=== PATIENT | male | born 1940 | race Caucasian/White ===

== ENCOUNTER 2018-03-14 15:51 | Observation (INO) | payer MEDICARE, OTHER ==
[~2018-03-14] VITALS: Ht 172.7 cm; Wt 98.0 kg
[~2018-03-14 15:51] MED LIST: ASPI81 PO; CENTTAB9 PO; FISH1000 PO; LISI-360 PO; MONT10TA2 PO; SIMV40TA PO; TYLE500T PO; VITD400 PO; [UNRECOGNIZED DRUG - OTHER] PO
[2018-03-14 16:05] VITALS: BP 182/78; PULSE 53; RESP 20; TEMP 98.1; O2SAT 100
[2018-03-14] MEDS ORDERED: NITROGLYCERIN 2% OINT 1 GM PACKET TOP ONE (16:15)
[2018-03-14] MEDS ORDERED: SODIUM CHLORIDE 0.9% FLUSH 10 ML FLUSH IVF PRN (16:15)
[2018-03-14] MEDS ORDERED: OCUVTAB PO (16:16)
[2018-03-14] MEDS ORDERED: ASPI-516 CHEW (16:16)
[2018-03-14] MEDS ORDERED: FISHCAP4 PO (16:16)
[2018-03-14] MEDS ORDERED: SIMV40TA PO (16:16)
[2018-03-14] MEDS ORDERED: COZA50TA PO (16:16)
[2018-03-14] MEDS ORDERED: MULTTAB67 PO (16:16)
--- NOTE | 2018-03-14 16:16 | PD ---
HPI Chief Complaint: Chest pain Time Seen by Provider: 16:04 Travel History International Travel<30 days: No Contact w/Intl Traveler<30days: No Traveled to known affect area: No History of Present Illness HPI This is a 78-year-old male with history of hypertension, hyperlipidemia who presents via EMS for evaluation of chest pain and dyspnea with exertion. Symptoms started 5-6 days ago. Reports a substernal chest tightness which is only present when he is exerting himself such as when he is moving furniture or walking his dogs. He reports associated dyspnea with exertion. Today he was walking and he felt the symptoms and this is what prompted evaluation today. He is currently asymptomatic. He took 1 baby aspirin this morning and received 3 more baby aspirin by EMS prior to arrival. He denies any cough, congestion, nausea, vomiting, diaphoresis, fevers or chills, recent illness, abdominal pain , lower extremity edema. He reports that he believes that he had a cardiac catheterization 9-10 years ago and it was normal. He had a myocardial perfusion scan in August 2013 which revealed an ejection fraction of 48% but was otherwise unremarkable. He has not had any stress testing since 2012. 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 His primary care physician is Dr. Poe. [facility] Past Medical History Arthritis: Yes Autoimmune Disease: Yes Heart Rhythm Problems: No Cancer: Yes (PROSTATE) Cardiac Catheterization: No Cardiovascular Problems: No High Cholesterol: No Congestive Heart Failure: No Diabetes: No Genitourinary: Yes (HAD KIDNEY STONE 2 YEARS AGO) Hepatitis: No Hiatal Hernia: Yes Hypertension: Yes Kidney Stones: Yes Musculoskeletal: Yes Neurologic: No Psychiatric: No Reproductive: No Respiratory: No Thyroid Disease: No Past Surgical History Abdominal Surgery: Yes (UMB. HERNIA REP. (X2)) AICD: No Cardiac Surgery: No Coronary Artery Bypass Graft: No Ear Surgery: No Endocrine Surgery: No Eye Surgery: No Genitourinary Surgery: Yes (PROSTATECTOMY) Gynecologic Surgery: No Joint Replacement: Yes (SANGEETA KNEE) Oral Surgery: No Pacemaker: No Thoracic Surgery: No Social History Alcohol Use: No (HX OF ETOH ABUSE) Tobacco Use: No (QUIT 20 YEARS AGO) Substance Use: No Allergies-Medications (Allergen,Severity, Reaction): Coded Allergies: penicillin G (Unverified Allergy, Severe, Rash, 03/14/18) Reported Meds & Prescriptions Reported Meds & Active Scripts Active Reported Cozaar (Losartan Potassium) 50 Mg Tab 50 Mg PO DAILY Simvastatin 40 Mg Tab 40 Mg PO HS Multiple Vitamin 1 Tab 1 Tab PO DAILY Ocuvite (Multiple Vitamins W/ Minerals) 1 Tab 1 Tab PO DAILY Fish Oil + D3 (Fish Oil-Cholecalciferol) 1,200-1,000 Mg-Unit Cap 1 Cap PO DAILY Aspirin 81 Mg Chew 81 Mg CHEW DAILY Review of Systems Except as stated in HPI: all other systems reviewed are Neg Physical Exam Narrative GENERAL: Well developed well-nourished male in no acute distress resting comfortably in hospital bed vital signs reviewed. SKIN: Warm and dry. HEAD: Atraumatic. Normocephalic. EYES: Pupils equal and round. No scleral icterus. No injection or drainage. ENT: No nasal bleeding or discharge. Mucous membranes pink and moist. NECK: Trachea midline. No JVD. CARDIOVASCULAR: Regular rate and rhythm. No murmur appreciated. RESPIRATORY: No accessory muscle use. Clear to auscultation. Breath sounds equal bilaterally. GASTROINTESTINAL: Abdomen soft, non-tender, nondistended. Hepatic and splenic margins not palpable. MUSCULOSKELETAL: No obvious deformities. No clubbing. No cyanosis. No edema. NEUROLOGICAL: Awake and alert. No obvious cranial nerve deficits. Motor grossly within normal limits. Normal speech. PSYCHIATRIC: Appropriate mood and affect; insight and judgment normal. Data Data Last Documented VS Vital Signs Date Time Temp Pulse Resp B/P (MAP) Pulse Ox O2 Delivery O2 Flow Rate FiO2 03/14/18 16:35 45 19 182/78 (112) 98 Nasal Cannula 2.00 03/14/18 16:05 98.1 Orders Orders Electrocardiogram (03/14/18 16:11) Basic Metabolic Panel (Bmp) (03/14/18 16:11) Ckmb (Isoenzyme) Profile (03/14/18 16:11) Complete Blood Count With Diff (03/14/18 16:11) Magnesium (Mg) (03/14/18 16:11) Prothrombin Time / Inr (Pt) (03/14/18 16:11) Act Partial Throm Time (Ptt) (03/14/18 16:11) Troponin I (03/14/18 16:11) Ecg Monitoring (03/14/18 16:11) Bilateral Bp Monitoring (03/14/18 16:11) Iv Access Insert/Monitor (03/14/18 16:11) Oximetry (03/14/18 16:11) Oxygen Administration (03/14/18 16:11) Sodium Chloride 0.9% Flush (Ns Flush) (03/14/18 16:15) Chest, Pa & Lat (03/14/18 16:11) Nitroglycerin 2% Oint (Nitroglycerin 2% (03/14/18 16:15) CKMB (03/14/18 14:15) CKMB% (03/14/18 14:15) Admit Order (Ed Use Only) (03/14/18 17:14) Activity Bed Rest With Brp (03/14/18 17:15) Vital Signs (Adult) Q4H (03/14/18 17:15) Cardiac Rhythm .As Directed (03/14/18 17:15) Notify Dr: Other .PRN (03/14/18 17:15) Notify Dr. Parameters (03/14/18 17:15) Resp Oxygen Nasal Cannula (03/14/18 ) Diet Heart Healthy (03/14/18 Dinner) Ckmb (Isoenzyme) Profile (03/14/18 17:15) Ckmb (Isoenzyme) Profile (03/14/18 20:15) Troponin I (03/14/18 17:15) Troponin I (03/14/18 20:15) Electrocardiogram (03/14/18 17:15) Electrocardiogram (03/14/18 20:15) ^ Obtain (03/14/18 17:15) Sodium Chloride 0.9% Flush (Ns Flush) (03/14/18 17:15) Sodium Chloride 0.9% Flush (Ns Flush) (03/14/18 21:00) Labs Laboratory Tests Test 03/14/18 14:15 White Blood Count 11.3 TH/MM3 Red Blood Count 4.63 MIL/MM3 Hemoglobin 14.4 GM/DL Hematocrit 42.1 % Mean Corpuscular Volume 91.0 FL Mean Corpuscular Hemoglobin 31.1 PG Mean Corpuscular Hemoglobin Concent 34.1 % Red Cell Distribution Width 13.3 % Platelet Count 252 TH/MM3 Mean Platelet Volume 8.5 FL Neutrophils (%) (Auto) 69.2 % Lymphocytes (%) (Auto) 18.9 % Monocytes (%) (Auto) 10.1 % Eosinophils (%) (Auto) 1.2 % Basophils (%) (Auto) 0.6 % Neutrophils # (Auto) 7.8 TH/MM3 Lymphocytes # (Auto) 2.1 TH/MM3 Monocytes # (Auto) 1.1 TH/MM3 Eosinophils # (Auto) 0.1 TH/MM3 Basophils # (Auto) 0.1 TH/MM3 CBC Comment DIFF FINAL Differential Comment Prothrombin Time 10.0 SEC Prothromb Time International Ratio 1.0 RATIO Activated Partial Thromboplast Time 19.1 SEC Blood Urea Nitrogen 19 MG/DL Creatinine 1.23 MG/DL Random Glucose 126 MG/DL Calcium Level 9.1 MG/DL Magnesium Level 2.2 MG/DL Sodium Level 145 MEQ/L Potassium Level 4.2 MEQ/L Chloride Level 110 MEQ/L Carbon Dioxide Level 28.1 MEQ/L Anion Gap 7 MEQ/L Estimat Glomerular Filtration Rate 57 ML/MIN Total Creatine Kinase 180 U/L Creatine Kinase MB 2.4 NG/ML Troponin I LESS THAN 0.02 NG/ML MDM Medical Decision Making Medical Screen Exam Complete: Yes Emergency Medical Condition: Yes Medical Record Reviewed: Yes Differential Diagnosis Angina, acute coronary syndrome, CHF, pneumothorax, pericarditis, myocarditis, aortic dissection, pulmonary embolism Narrative Course The patient was placed on ECG monitoring pulse oximetry. 12-lead EKG was obtained revealing sinus bradycardia with a rate of 50, first-degree AV block, right bundle branch block. Lab work, chest x-ray been ordered. Nitroglycerin paste has been ordered. The patient's blood pressure normalized during his hospital stay. Initial lab work is reassuring. Cardiac enzymes are negative. At this point in time the plan will be to admit the patient to the chest pain center for serial cardiac enzymes and rule out purposes. He is agreeable. Diagnosis Primary Impression: Chest pain Admitting Information Admitting Physician Requests: Eliecer Jones Mar 14, 2018 16:16
[2018-03-14 16:33] LABS: AUTOMATED NEUTROPHIL # 7.8 TH/MM3 (1.8-7.7); BASOPHIL # 0.1 TH/MM3 (0-0.2); BASOPHIL % 0.6 % (0.0-2.0); EOSINOPHIL # 0.1 TH/MM3 (0-0.4); EOSINOPHIL % 1.2 % (0.0-4.0); HEMATOCRIT 42.1 % (39.0-51.0); HEMOGLOBIN 14.4 GM/DL (13.0-17.0); LYMPH % 18.9 % (9.0-44.0); LYMPHOCYTE # 2.1 TH/MM3 (1.0-4.8); MEAN CORPUSCULAR HEMOGLOBIN 31.1 PG (27.0-34.0); MEAN CORPUSCULAR HGB CONC 34.1 % (32.0-36.0); MEAN PLATELET VOLUME 8.5 FL (7.0-11.0); MONO % 10.1 % (0.0-8.0); MONOCYTE # 1.1 TH/MM3 (0-0.9); NEUT % 69.2 % (16.0-70.0); PLATELET COUNT 252 TH/MM3 (150-450); RED BLOOD COUNT 4.63 MIL/MM3 (4.50-5.90); RED CELL DISTRIBUTION WIDTH 13.3 % (11.6-17.2); WHITE BLOOD COUNT 11.3 TH/MM3 (4.0-11.0)
[2018-03-14 16:35] VITALS: BP 182/78; PULSE 45; RESP 19; O2SAT 98
--- NOTE | 2018-03-14 16:41 | RADRPT ---
EXAM DATE/TIME: 03/14/2018 16:27 [facility] COMPARISON: No previous studies available for comparison. INDICATIONS : Shortness of breath and chest pressure. MEDICAL HISTORY : None. SURGICAL HISTORY : None. ENCOUNTER: Initial ACUITY: 1 day PAIN SCORE: 0/10 LOCATION: Bilateral chest FINDINGS: PA and lateral views of the chest demonstrate the lungs to be symmetrically aerated without evidence of mass, infiltrate or effusion. The cardiomediastinal contours are unremarkable. Osseous structure s are intact. CONCLUSION: No acute disease. Paul Guerrier MD on March 14, 2018 at 16:38 Board Certified Radiologist. This report was verified electronically.
[2018-03-14 16:58] LABS: BICARBONATE 28.1 MEQ/L (21.0-32.0); BLOOD UREA NITROGEN 19 MG/DL (7-18); CALCIUM 9.1 MG/DL (8.5-10.1); CHLORIDE 110 MEQ/L (98-107); CREATININE 1.23 MG/DL (0.60-1.30); GLOMERULAR FILTRATION RATE 57 ML/MIN (>89); GLUCOSE,RANDOM 126 MG/DL (74-106); MAGNESIUM 2.2 MG/DL (1.5-2.5); SODIUM (NA) 145 MEQ/L (136-145)
[2018-03-14 17:03] LABS: TROPONIN I LESS THAN 0.02 NG/ML (0.02-0.05)
[2018-03-14] MEDS ORDERED: SODIUM CHLORIDE 0.9% FLUSH 10 ML FLUSH IV FLUSH PRN (17:15)
[2018-03-14] MEDS ORDERED: ACETAMINOPHEN 500 MG CPLT PO PRN (17:30)
[2018-03-14] MEDS ORDERED: ONDANSETRON HCL 4 MG/2 ML VIAL IV PUSH PRN (17:30)
[2018-03-14] MEDS ORDERED: NITROGLYCERIN 0.4 MG SL 25 TABS/BTL SL PRN (17:30)
--- NOTE | 2018-03-14 17:38 | PD ---
Physical Exam Narrative I, Dr. Ortiz, have reviewed the advance practice practitioner's documentation and am in agreement, met with the patient face to face, made the diagnosis, and the medical decision making was done by me. *My assessment and Findings: ACS vs. musculoskeletal pain vs. GERD 78y M with PMH of HTN and HLD here with c/o chest pain that is exertional since Friday. No chest pain at rest. Chest pain occurs with walking and associated with sob. Last stress test was 2012. 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 Labs reviewed, no leukocytosis. H/H normal. Troponin negative. CXR negative. Will admit to chest pain center for serial EKG and cardiac enzyme. Will likely need stress test. Data Data Last Documented VS Vital Signs Date Time Temp Pulse Resp B/P (MAP) Pulse Ox O2 Delivery O2 Flow Rate FiO2 03/14/18 16:35 45 19 182/78 (112) 98 Nasal Cannula 2.00 03/14/18 16:05 98.1 Orders Orders Electrocardiogram (03/14/18 16:11) Basic Metabolic Panel (Bmp) (03/14/18 16:11) Ckmb (Isoenzyme) Profile (03/14/18 16:11) Complete Blood Count With Diff (03/14/18 16:11) Magnesium (Mg) (03/14/18 16:11) Prothrombin Time / Inr (Pt) (03/14/18 16:11) Act Partial Throm Time (Ptt) (03/14/18 16:11) Troponin I (03/14/18 16:11) Ecg Monitoring (03/14/18 16:11) Bilateral Bp Monitoring (03/14/18 16:11) Iv Access Insert/Monitor (03/14/18 16:11) Oximetry (03/14/18 16:11) Oxygen Administration (03/14/18 16:11) Sodium Chloride 0.9% Flush (Ns Flush) (03/14/18 16:15) Chest, Pa & Lat (03/14/18 16:11) Nitroglycerin 2% Oint (Nitroglycerin 2% (03/14/18 16:15) CKMB (03/14/18 14:15) CKMB% (03/14/18 14:15) Admit Order (Ed Use Only) (03/14/18 17:14) Activity Bed Rest With Brp (03/14/18 17:15) Vital Signs (Adult) Q4H (03/14/18 17:15) Cardiac Rhythm .As Directed (03/14/18 17:15) Notify Dr: Other .PRN (03/14/18 17:15) Notify Parameters (03/14/18 17:15) Resp Oxygen Nasal Cannula (03/14/18 ) Ckmb (Isoenzyme) Profile (03/14/18 17:15) Ckmb (Isoenzyme) Profile (03/14/18 20:15) Troponin I (03/14/18 17:15) Troponin I (03/14/18 20:15) Electrocardiogram (03/14/18 17:15) Electrocardiogram (03/14/18 20:15) ^ Obtain (03/14/18 17:15) Sodium Chloride 0.9% Flush (Ns Flush) (03/14/18 17:15) Sodium Chloride 0.9% Flush (Ns Flush) (03/14/18 21:00) Labs Laboratory Tests Test 03/14/18 14:15 White Blood Count 11.3 TH/MM3 Red Blood Count 4.63 MIL/MM3 Hemoglobin 14.4 GM/DL Hematocrit 42.1 % Mean Corpuscular Volume 91.0 FL Mean Corpuscular Hemoglobin 31.1 PG Mean Corpuscular Hemoglobin Concent 34.1 % Red Cell Distribution Width 13.3 % Platelet Count 252 TH/MM3 Mean Platelet Volume 8.5 FL Neutrophils (%) (Auto) 69.2 % Lymphocytes (%) (Auto) 18.9 % Monocytes (%) (Auto) 10.1 % Eosinophils (%) (Auto) 1.2 % Basophils (%) (Auto) 0.6 % Neutrophils # (Auto) 7.8 TH/MM3 Lymphocytes # (Auto) 2.1 TH/MM3 Monocytes # (Auto) 1.1 TH/MM3 Eosinophils # (Auto) 0.1 TH/MM3 Basophils # (Auto) 0.1 TH/MM3 CBC Comment DIFF FINAL Differential Comment Prothrombin Time 10.0 SEC Prothromb Time International Ratio 1.0 RATIO Activated Partial Thromboplast Time 19.1 SEC Blood Urea Nitrogen 19 MG/DL Creatinine 1.23 MG/DL Random Glucose 126 MG/DL Calcium Level 9.1 MG/DL Magnesium Level 2.2 MG/DL Sodium Level 145 MEQ/L Potassium Level 4.2 MEQ/L Chloride Level 110 MEQ/L Carbon Dioxide Level 28.1 MEQ/L Anion Gap 7 MEQ/L Estimat Glomerular Filtration Rate 57 ML/MIN Total Creatine Kinase 180 U/L Creatine Kinase MB 2.4 NG/ML Troponin I LESS THAN 0.02 NG/ML [facility] Supervised Visit with DONTE: Yes Interpretation(s) EKG: Sinus bradycardia at 50bpm. LAD. RBBB. 1st AV block. Diagnosis Primary Impression: Chest pain Qualified Codes: R07.9 - Chest pain, unspecified Admitting Information Admitting Physician Requests: Observation Ivory Ortiz DO Mar 14, 2018 17:38
[2018-03-14 18:35] VITALS: BP 161/72; PULSE 65; RESP 18; TEMP 97.8; O2SAT 96
[2018-03-14 18:58] LABS: TROPONIN I LESS THAN 0.02 NG/ML (0.02-0.05)
[2018-03-14 20:25] VITALS: BP 205/87; PULSE 63; RESP 16; TEMP 97.5; O2SAT 97
[2018-03-14 21:22] VITALS: BP 160/60
[2018-03-14 21:23] VITALS: BP 164/66
[2018-03-14] MEDS: SODIUM CHLORIDE 0.9% FLUSH 10 ML FLUSH IV FLUSH SCH (22:00)
[2018-03-14 22:50] LABS: TROPONIN I LESS THAN 0.02 NG/ML (0.02-0.05)
[2018-03-15] VITALS (8 sets, daily range): BP systolic 158–196; BP diastolic 70–93; PULSE 55–75; RESP 16–18; TEMP 97.5–98.4; O2SAT 95–99
--- NOTE | 2018-03-15 08:19 | HHI.HP ---
HPI Primary Care Physician Jozef Poe DO Chief Complaint Exertional dyspnea History of Present Illness 78 year old male with history of hyperlipidemia, hypertension, and remote prostate cancer presents to ER for further evaluation of dyspnea with exertion. Onset Friday while moving furniture and again yesterday while volunteering at local [employer] event. Walking approximately 200 feet before developing exertional, quickly resolving with rest. Later in afternoon, while walking his brother's dog one block, became dyspneic again. Drove himself back to [employer] festival and told his friends working at the [employer] completed vitals and ekg, then recommended him come to ER for further evaluation. No associated chest pain , chest pressure, nausea, vomiting, or diaphoresis. Denies similar discomfort in the past. Precipitating factors activity. Resolving factors rest. Review of Systems General: No fatigue,weakness, fever, chills, recent illness, or change in appetite. Has been in his general state of health. HEENT: No REICH, no nasal congestion or drainage, no dysphasia CV: As stated above, denies ever having chest discomfort or pressure. No palpations. RESP: No SOB, cough, wheeze. History of "trace" COPD. GI: No nausea, vomiting, bowel changes, diarrhea, constipation, pain, distention , melena, or blood in the stool. : No dysuria, urgency, or frequency. History of kidney stones EXT: No lower leg edema, no paraesthesias MS: No discomfort, injury, or change in ROM NEURO: No change in memory, dizziness, difficulty with balance, LOC, motor/ sensory deficits PSYCH: No anxiety or depression SKIN: No rashes, no concerning lesions Past Family Social History Allergies: Coded Allergies: penicillin G (Unverified Allergy, Severe, Rash, 03/14/18) Past Medical History Prostate cancer, kidney stones, hyperlipidemia, hypertension, COPD, arthritis Past Surgical History Radical prostatectomy (1996) followed by 37 radiation treatments, umbilical hernia repair, partial bilateral knee replacement Reported Medications Reported Meds & Active Scripts Active Reported Cozaar (Losartan Potassium) 50 Mg Tab 50 Mg PO DAILY Simvastatin 40 Mg Tab 40 Mg PO HS Ocuvite (Multiple Vitamins W/ Minerals) 1 Tab 1 Tab PO DAILY Fish Oil + D3 (Fish Oil-Cholecalciferol) 1,200-1,000 Mg-Unit Cap 1 Cap PO DAILY Aspirin 81 Mg Chew 81 Mg CHEW DAILY Active Ordered Medications Current Medications Medications (Trade) Dose Ordered Sig/Jovanny Route Start Time Stop Time Status Last Admin (NS Flush) 2 ml UNSCH PRN IVF 03/14/18 16:15 (NS Flush) 2 ml UNSCH PRN IV FLUSH 03/14/18 17:15 (NS Flush) 2 ml BID IV FLUSH 03/14/18 21:00 03/14/18 22:00 (Tylenol) 500 mg Q4H PRN PO 03/14/18 17:30 03/15/18 02:31 (Zofran Inj) 4 mg Q6H PRN IV PUSH 03/14/18 17:30 (Nitrostat Sl) 0.4 mg Q5M PRN SL 03/14/18 17:30 (Aspirin) 325 mg DAILY PO 03/15/18 09:00 Family History Noncontributory for early onset cardiovascular disease. Father age 69 [place]. Social History Known hyperlipidemia and hypertension. No known CAD or diabetes. Former smoker, quitting 1993. Quit alcohol in 1987. . Retired from [employer]. Endorses an active lifestyle. Past cardiac testing 09/15/13 Lexiscan-No evidence of ischemia, EF 48%. 2007 Cardiac catheterization ([facility])-reported to be normal and completed due to an abnormal finding on cardiac stress testing. Physical Exam Vital Signs Vital Signs Date Time Temp Pulse Resp B/P (MAP) Pulse Ox O2 Delivery O2 Flow Rate FiO2 03/15/18 07:25 98.4 71 18 189/86 (120) 96 03/15/18 04:23 166/70 (102) 158/76 (103) 03/15/18 04:20 55 03/15/18 04:00 97.8 75 17 196/93 (127) 99 03/15/18 03:31 14 03/15/18 01:09 97.6 59 16 194/77 (116) 95 03/15/18 00:34 70 03/14/18 21:23 164/66 (98) Automatic Cuff 03/14/18 21:22 160/60 (93) Automatic Cuff 03/14/18 20:25 97.5 63 16 205/87 (126) 97 03/14/18 20:13 03/14/18 18:35 97.8 65 18 161/72 (101) 96 Room Air 03/14/18 16:35 45 19 182/78 (112) 98 Nasal Cannula 2.00 03/14/18 16:17 99 Nasal Cannula 2.00 03/14/18 16:17 99 Nasal Cannula 2.00 03/14/18 16:05 98.1 53 20 182/78 (112) 100 Physical Exam GENERAL: Alert WN, WD, NAD, pleasant, male HEAD: NC, AT EYES: Sclera clear, conjunctiva without injection, pupils equal and round ENT: Mucous membranes pink and moist CV: Regular bradycardic rhythm, without murmur, rub, gallop, no JVD, S1-S2 no S3 -S4. No carotid bruits. Chest wall nontender with palpation. RESP: Clear lungs throughout bilateral, no crackles, wheeze, rhonchi, symmetrical chest rise, nonlabored, able to speak in full sentences ABD: Soft, NT, ND, no masses, positive bowel tones EXT: Pulses +2-4, no dependent edema MS: Normal tone -4 extremities, no obvious deformities, full range of motion NEURO: CN II through CN XII grossly intact, motor strength 5/5 PSYCH: A+O -3, pleasant affect, appropriate speech, mood, insight and judgment SKIN: Normal turgor, normal texture, no lesions, no rashes, brisk cap refill, even hair distribution Laboratory Laboratory Tests Test 03/14/18 14:15 03/14/18 18:05 03/14/18 22:00 White Blood Count 11.3 Red Blood Count 4.63 Hemoglobin 14.4 Hematocrit 42.1 Mean Corpuscular Volume 91.0 Mean Corpuscular Hemoglobin 31.1 Mean Corpuscular Hemoglobin Concent 34.1 Red Cell Distribution Width 13.3 Platelet Count 252 Mean Platelet Volume 8.5 Neutrophils (%) (Auto) 69.2 Lymphocytes (%) (Auto) 18.9 Monocytes (%) (Auto) 10.1 Eosinophils (%) (Auto) 1.2 Basophils (%) (Auto) 0.6 Neutrophils # (Auto) 7.8 Lymphocytes # (Auto) 2.1 Monocytes # (Auto) 1.1 Eosinophils # (Auto) 0.1 Basophils # (Auto) 0.1 CBC Comment DIFF FINAL Differential Comment Prothrombin Time 10.0 Prothromb Time International Ratio 1.0 Activated Partial Thromboplast Time 19.1 Blood Urea Nitrogen 19 Creatinine 1.23 Random Glucose 126 Calcium Level 9.1 Magnesium Level 2.2 Sodium Level 145 Potassium Level 4.2 Chloride Level 110 Carbon Dioxide Level 28.1 Anion Gap 7 Estimat Glomerular Filtration Rate 57 Total Creatine Kinase 180 177 127 Creatine Kinase MB 2.4 1.9 1.7 Troponin I LESS THAN 0.02 LESS THAN 0.02 LESS THAN 0.02 Result Diagram: 03/14/18 1415 03/14/18 1415 Imaging Last 48 hours Impressions Chest X-Ray 03/14/18 1611 Signed Impressions: Service Date/Time: Wednesday, March 14, 2018 16:27 - CONCLUSION: No acute disease. Paul Guerrier MD Course EKG NSR, R BBB Aly VTE Risk Assessment Aly VTE Risk Assessment: Mod/High Risk (score >= 2) Caprini Risk Assessment Model Point Value = 1 Point Value = 2 Point Value = 3 Point Value = 5 Age 41-60 Minor surgery BMI > 25 kg/m2 Swollen legs Varicose veins or History of unexplained or recurrent spontaneous Oral contraceptives or hormone replacement Sepsis (< 1 month) Serious lung disease, including pneumonia (< 1 month) Abnormal pulmonary function Acute myocardial infarction Congestive heart failure (< 1 month) History of inflammatory bowel disease Medical patient at bed rest Age 61-74 Arthroscopic surgery Major open surgery (> 45 min) Laparoscopic surgery (> 45 min) Malignancy Confined to bed (> 72 hours) Immobilizing plaster cast Central venous access Age >= 75 History of VTE Family history of VTE Factor V Leiden Prothrombin [id number] Lupus anticoagulant Anticardiolipin antibodies Elevated serum homocysteine Heparin-induced thrombocytopenia Other congenital or acquired thrombophilia Stroke (< 1 month) Elective arthroplasty Hip, pelvis, or leg fracture Acute spinal cord injury (< 1 month) Prophylaxis Regimen Total Risk Factor Score Risk Level Prophylaxis Regimen 0-1 Low Early ambulation 2 Moderate Order ONE of the following: *Sequential Compression Device (SCD) *Heparin 5000 units SQ BID 3-4 Higher Order ONE of the following medications: *Heparin 5000 units SQ TID *Enoxaparin/Lovenox 40 mg SQ daily (WT < 150 kg, CrCl > 30 mL/min) *Enoxaparin/Lovenox 30 mg SQ daily (WT < 150 kg, CrCl > 10-29 mL/min) *Enoxaparin/Lovenox 30 mg SQ BID (WT < 150 kg, CrCl > 30 mL/min) AND/OR *Sequential Compression Device (SCD) 5 or more Highest Order ONE of the following medications: *Heparin 5000 units SQ TID (Preferred with Epidurals) *Enoxaparin/Lovenox 40 mg SQ daily (WT < 150 kg, CrCl > 30 mL/min) *Enoxaparin/Lovenox 30 mg SQ daily (WT < 150 kg, CrCl > 10-29 mL/min) *Enoxaparin/Lovenox 30 mg SQ BID (WT < 150 kg, CrCl > 30 mL/min) AND *Sequential Compression Device (SCD) Assessment and Plan Assessment and Plan #1 Chest pain-admitted to chest pain center. Ruled out with 3 sets of EEGs, cardiac enzymes, and monitor on telemetry overnight. Seen and evaluated by Dr. Eron birmingham. Proceed with chemical stress testing this a.m. If unremarkable, plans will be to discharge home with follow-up with PCP. #2 History of hyperlipidemia-continue simvastatin #3 History of hypertension-continue losartan Rhythm strip placed by RN in chart reviewed with Nica rice. Dr. Moseley discussed rhythm with patient and instructed upon discharge to follow up with PCP and to request cardiology referral. Copies of rhythm strips provided upon discharge. Kylie Perez Mar 15, 2018 08:19
[2018-03-15] MEDS: SODIUM CHLORIDE 0.9% FLUSH 10 ML FLUSH IV FLUSH SCH (08:50)
[2018-03-15] MEDS ORDERED: LOSARTAN 50 MG TAB PO SCH (09:00)
[2018-03-15] MEDS ORDERED: ASPIRIN 325 MG TAB PO SCH (09:00)
[2018-03-15] MEDS ORDERED: REGADENOSON INJ 0.4 MG/5 ML SYR ONE (10:25)
--- NOTE | 2018-03-15 11:00 | EKG ---
Date Performed: 03/14/2018 Time Performed: 22:12:16 PTAGE: 78 years EKG: SINUS BRADYCARDIA WITH FIRST DEGREE AV BLOCK MARKED LEFT AXIS DEVIATION RIGHT BUNDLE BRANCH BLOCK MODERATE VOLTAGE CRITERIA FOR LVH, CONSIDER NORMAL VARIANT ABNORMAL ECG PREVIOUS TRACING : 03/14/2018 18.02 Since previous tracing, no significant change noted DOCTOR: Eron Moseley Interpretating Date/Time 03/15/2018 10:59:41
--- NOTE | 2018-03-15 12:21 | RADRPT ---
EXAM DATE/TIME: 03/15/2018 09:51 [facility] COMPARISON: No previous studies available for comparison. INDICATIONS : Substernal chest pain with dyspnea. Angina. DOSE: 27.4 mCi Tc99m Myoview at stress. 8.8 mCi Tc99m Myoview at rest. 0.4 mg Lexiscan STRESS SYMPTOMS: None noted. EJECTION FRACTION: 57% MEDICAL HISTORY : Hypercholesterolemia. Carcinoma, prostate. Hypertension. SURGICAL HISTORY : Total knee replacement, right. Prostatectomy. Umbilical hernia repair. ENCOUNTER: Initial ACUITY: 4 - 6 days PAIN SCALE: 6/10 LOCATION: Substernal chest TECHNIQUE: The patient underwent pharmacologic stress with infusion of prescribed dose. Continuous ECG tracing was monitored during stress. Gated SPECT imaging was performed after stress and conventional SPECT i maging was performed at rest. The examination was performed on a SPECT/CT scanner, both attenuation and non-corrected datasets were reviewed. FINDINGS: DISTRIBUTION: The maximum perfused segment at stress is in the anterolateral wall. PERFUSION STUDY: The pattern of perfusion at stress is within normal limits. There is a summed stress score of zero. GATED STUDY: There is intact wall motion and thickening without hypokinetic or dyskinetic segments. CONCLUSION: 1. No fixed or reversible defects to suggest ischemia or infarction. 2. Normal wall motion and calculated ejection fraction. RISK CATEGORY: Low (<1% Annual Mortality Rate) Zain Oneill MD on March 15, 2018 at 12:18 Board Certified Radiologist. This report was verified electronically.
--- NOTE | 2018-03-15 13:09 | HHI.DCPOC ---
Discharge Care Plan Diagnosis: (1) Anginal equivalent (2) Dyspnea on exertion (3) History of hyperlipidemia (4) History of hypertension (5) Former smoker, stopped smoking many years ago Goals to Promote Your Health * To prevent worsening of your condition and complications * To maintain your health at the optimal level Directions to Meet Your Goals Take your medications as prescribed Follow your dietary instruction Follow activity as directed Keep your appointments as scheduled Take your immunizations and boosters as scheduled If your symptoms worsen call your PCP, if no PCP go to Urgent Care Center or Emergency Room Smoking is Dangerous to Your Health. Avoid second hand smoke Call the 24-hour hour crisis hotline for domestic abuse at Kylie Perez Mar 15, 2018 13:09
--- NOTE | 2018-03-15 13:41 | HHI.DCPOC ---
Discharge Care Plan Diagnosis: (1) Nica block Goals to Promote Your Health * To prevent worsening of your condition and complications * To maintain your health at the optimal level Directions to Meet Your Goals Take your medications as prescribed Follow your dietary instruction Follow activity as directed Keep your appointments as scheduled Take your immunizations and boosters as scheduled If your symptoms worsen call your PCP, if no PCP go to Urgent Care Center or Emergency Room Smoking is Dangerous to Your Health. Avoid second hand smoke Call the 24-hour hour crisis hotline for domestic abuse at Kylie Perez Mar 15, 2018 13:41
--- NOTE | 2018-03-16 00:33 | EKG ---
Date Performed: 03/14/2018 Time Performed: 18:02:03 PTAGE: 78 years EKG: Sinus rhythm WITH FIRST DEGREE AV BLOCK MARKED LEFT AXIS DEVIATION RIGHT BUNDLE BRANCH BLOCK MODERATE VOLTAGE CRI TERIA FOR LVH, CONSIDER NORMAL VARIANT ABNORMAL ECG Since the PREVIOUS TRACING , no significant change noted DOCTOR: Dillon Grey Interpretating Date/Time 03/16/2018 00:32:51
--- NOTE | 2018-03-16 00:38 | EKG ---
Date Performed: 03/14/2018 Time Performed: 16:09:58 PTAGE: 78 years EKG: SINUS BRADYCARDIA WITH FIRST DEGREE AV BLOCK MARKED LEFT AXIS DEVIATION RIGHT BUNDLE BRANCH BLOCK POSSIBLE LEFT VENTRICULAR HYPERTROPHY ABNORMAL ECG INTERPRETATION BASED ON A DEFAULT AGE OF 42 YEARS PREVIOUS TRACING : 09/15/2013 07.28 Compared to previous tracing, now with first degree A V block and RBBB DOCTOR: Dillon Grey Interpretating Date/Time 03/16/2018 00:36:23
--- NOTE | 2018-03-16 12:48 | TR ---
Date Performed: 03/15/2018 Time Performed: 10:40:48 DOCTOR: Kevin Shaver DRUG LIST: CLINICAL HISTORY: REASON FOR TEST: CHEST PAIN REASON FOR ENDING: OBSERVATION: CONCLUSION: COMMENTS: Lexiscan stress test was performed under standard four minute protocol. Radionuclide was injected one minute prior to ending the test. RBBB was present throughout the study but no electr ocardiographic abormalities were present to suggest ischemia. Nuclear imaging and interpretation are pending.
== END 2018-03-15 14:18 | disposition home or self-care (01) ==
LOC: NEPC 15:51 → NEDH 17:15 → NEPGCP 20:27
DX: I20.9 Angina pectoris, unspecified (principal); I10 Essential (primary) hypertension; I20.8 Other forms of angina pectoris; E78.5 Hyperlipidemia, unspecified; I44.1 Atrioventricular block, second degree; I45.10 Unspecified right bundle-branch block; J44.9 Chronic obstructive pulmonary disease, unspecified; X50.0XXA Overexertion from strenuous movement or load, initial encounter; Z85.46 Personal history of malignant neoplasm of prostate; Z87.442 Personal history of urinary calculi; Z87.891 Personal history of nicotine dependence; Z96.653 Presence of artificial knee joint, bilateral
CPT/HCPCS: 71046; 78452; 80048; 82550; 82552; 83735; 84484; 85025; 85610; 85730; 93005; 93017; 99285; A9502; G0378; J2785

== ENCOUNTER 2018-04-01 09:56 | Day surgery (SDC) | payer MEDICARE, OTHER ==
[~2018-04-01] VITALS: Ht 172.7 cm; Wt 99.1 kg
[~2018-04-01 09:56] MED LIST changes: +ASPI-516 CHEW; -ASPI81 PO; -CENTTAB9 PO; +COZA50TA PO; -FISH1000 PO; +FISHCAP4 PO; -LISI-360 PO; -MONT10TA2 PO; +MULTTAB67 PO; +OCUVTAB PO; -TYLE500T PO; -VITD400 PO; -[UNRECOGNIZED DRUG - OTHER] PO
[2018-04-01] MEDS ORDERED: IOHEXOL 350 MG/ML 50 ML BTL (for Cath Lab) OTHER ONE (09:57)
[2018-04-01 10:40] VITALS: BP 188/92; PULSE 36; RESP 18; O2SAT 95
[2018-04-01] MEDS ORDERED: VITA1000 PO (10:45)
[2018-04-01] MEDS ORDERED: MUPIROCIN 2% OINT 1 APPLIC/GM SYR NASAL SCH (11:00)
[2018-04-01] MEDS ORDERED: VANCOMYCIN 1000 MG/NS 250 ML IV SCH ×2 (11:00)
[2018-04-01] MEDS ORDERED: CHLORHEXIDINE GLUCONATE 2 % 1 PACK (2 CLOTHS) TOPICAL SCH (11:00)
[2018-04-01] MEDS ORDERED: Hold AM Insulin & AM Hypoglycemic medications in diabetic patients PRN (11:00)
[2018-04-01] MEDS: NS 1000 ML IV SCH (11:00)
[2018-04-01] MEDS ORDERED: POVIDONE IODINE 5% (ANTISEPSIS KIT) 4 APPLICATIONS EACH NARE SCH (11:00)
[2018-04-01 11:04] LABS: AUTOMATED NEUTROPHIL # 7.1 TH/MM3 (1.8-7.7); BASOPHIL # 0.1 TH/MM3 (0-0.2); BASOPHIL % 0.6 % (0.0-2.0); EOSINOPHIL # 0.1 TH/MM3 (0-0.4); EOSINOPHIL % 1.1 % (0.0-4.0); HEMATOCRIT 42.2 % (39.0-51.0); HEMOGLOBIN 14.4 GM/DL (13.0-17.0); MEAN CELL VOLUME 90.7 FL (80.0-100.0); MEAN CORPUSCULAR HEMOGLOBIN 30.9 PG (27.0-34.0); MEAN PLATELET VOLUME 9.1 FL (7.0-11.0); MONOCYTE # 0.8 TH/MM3 (0-0.9); NEUT % 70.3 % (16.0-70.0); PLATELET COUNT 263 TH/MM3 (150-450); RED BLOOD COUNT 4.65 MIL/MM3 (4.50-5.90); RED CELL DISTRIBUTION WIDTH 13.5 % (11.6-17.2); WHITE BLOOD COUNT 10.1 TH/MM3 (4.0-11.0)
[2018-04-01 11:08] LABS: PROTHROMBIN TIME - PATIENT 10.5 SEC (9.8-11.6)
[2018-04-01] MEDS ORDERED: METOPROLOL TARTRATE 25 MG TAB PO PRN (11:15)
[2018-04-01] MEDS ORDERED: LACTATED RINGER'S 1000 ML IV PRN (11:15)
[2018-04-01] MEDS ORDERED: POVIDONE IODINE 5% (ANTISEPSIS KIT) 4 APPLICATIONS EACH NARE PRN (11:15)
[2018-04-01] MEDS ORDERED: SODIUM CHLORID 0.9% 500 ML IV PRN (11:15)
[2018-04-01] MEDS ORDERED: CHLORHEXIDINE GLUCONATE 2 % 1 PACK (2 CLOTHS) TOPICAL PRN (11:15)
[2018-04-01 11:25] LABS: BICARBONATE 22.9 MEQ/L (21.0-32.0); CALCIUM 8.8 MG/DL (8.5-10.1); CREATININE 1.35 MG/DL (0.60-1.30)
--- NOTE | 2018-04-01 11:36 | EKG ---
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
[2018-04-01] MEDS ORDERED: PROPOFOL 200 MG/20 ML AMP IV ONE (12:00)
[2018-04-01] MEDS ORDERED: LIDOCAINE HCL 1% PF 5 ML SYRINGE OTHER ONE (12:00)
[2018-04-01] MEDS ORDERED: ONDANSETRON HCL 4 MG/2 ML VIAL IV ONE (12:00)
[2018-04-01] MEDS ORDERED: LIDOCAINE HCL 2% 20 ML VIAL ONE (12:07)
[2018-04-01] MEDS ORDERED: VANCOMYCIN 500 MG VIAL ONE (12:07)
[2018-04-01] MEDS ORDERED: LEVOFLOXACIN 500 MG PREMIX INJ 100 ML IV ONE (12:33)
[2018-04-01] MEDS ORDERED: DO NOT ADM ANY ANTICOAGULANT DRUGS PRN (14:00)
[2018-04-01] MEDS ORDERED: MAGNESIUM HYDROXIDE SUSP 30 ML CUP PO PRN (15:00)
[2018-04-01] MEDS ORDERED: ZOLPIDEM TARTRATE 5 MG TAB PO PRN (15:00)
[2018-04-01] MEDS ORDERED: ONDANSETRON HCL 4 MG/2 ML VIAL IV PUSH PRN (15:00)
[2018-04-01] MEDS ORDERED: *LABETALOL HCL 100 MG/20 ML VIAL PERIprocedural Use ONLY ONE (15:05)
--- NOTE | 2018-04-01 15:21 | MP ---
cc: Reyna Nolen MD, James R DO DATE OF OPERATION: 04/01/2018 PROCEDURE: Insertion of dual chamber pacemaker. INDICATIONS FOR PACEMAKER: Complete heart block. CONSENT: Fully informed consent was obtained prior to the procedure. The risks of , bleeding, myocardial infarction, perforation, aspiration, pneumothorax, foreseen and unforeseen complications were reviewed. The patient appeared to fully understand the risks. PROCEDURE: 1. Dual chamber pacemaker insertion. 2. Injection of contrast to visualize left subclavian vein. PROCEDURAL STATEMENTS: The patient was draped and prepped in the usual sterile manner. The left infraclavicular area was carefully infiltrated with 1% lidocaine. With the ultrasound and a micropuncture kit, the vein was difficult to access. The vein was therefore injected with contrast and identified with fluoroscopy. Two sticks were carried out in the left subclavian vein and 2 guidewires placed in the venous circulation. The pacemaker pocket was then fashioned using blunt, sharp, and cautery dissection. The introducer sheaths, which were passed over the introducer wires, were placed in the subclavian vein. Through the introducer sheaths 2 leads were passed into the venous circulation. The ventricular lead was passed into the right ventricular apex, the atrial lead in the right atrial appendage. The screws were was screwed into the myocardium. Both leads were sewn down to pectoralis fascia. Both leads were connected to the respective chamber of the pulse generator. Set screws were tightened, but not over-tightened. The pulse generator was then sewn down to the pectoralis fascia. The pocket was flushed with vancomycin solution on several occasions. The pocket was then closed in 3 layers. a layer of medical adhesive was also used as a surface layer in addition. Excellent pacing and sensing was noted through the device and also prior to this using the pacing system analyzer. CONCLUSION: Successful placement of dual-chamber pacemaker. PLAN: 1. We will plan to discharge the patient tomorrow. 2. Plan to do a chest x-ray to rule out pneumothorax. 3. Followup will be with Dr. Poe in 2-3 weeks' time and with the undersigned in 1-2 weeks' time. MD FREDO Lovett/MAIA , 02:40 PM , 03:21 PM MARCELLUS
--- NOTE | 2018-04-01 15:41 | RADRPT ---
EXAM DATE/TIME: 04/01/2018 15:10 [place] COMPARISON: No previous studies available for comparison. INDICATIONS : Pneumothorax, post pacemaker. MEDICAL HISTORY : Hypercholesterolemia. Carcinoma, prostatic. Hypertension. SURGICAL HISTORY : Prostatectomy. total rt. knee, umbilical hernia repair. ENCOUNTER: Initial ACUITY: 1 day PAIN SCORE: 0/10 LOCATION: Bilateral chest FINDINGS: Pacemaker left chest. No pneumothorax. Cardiomegaly with mild interstitial edema. The portion of th e bony skeleton visualized is unremarkable. CONCLUSION: Pacer left chest in good position. No pneumothorax Dimitris Coronel MD FACR on April 01, 2018 at 15:39 Board Certified Radiologist. This report was verified electronically.
[2018-04-01] MEDS ORDERED: *ENALAPRILAT 1.25 MG/ML VIAL PERIprocedural Use ONLY ONE (15:49)
[2018-04-01] MEDS ORDERED: *morphine SULFATE 4 MG/ML PERIprocedure ONLY ONE (16:06)
[2018-04-01] MEDS ORDERED: hydrALAZINE HCL 20 MG/ML VIAL ONE (17:29)
[2018-04-01] MEDS ORDERED: hydrALAZINE HCL 20 MG/ML VIAL IV ONE (17:45)
[2018-04-01] MEDS ORDERED: LABETALOL HCL 100 MG/20 ML VIAL IV ONE (17:45)
[2018-04-01 18:10] VITALS: BP 167/82; PULSE 69; RESP 18; TEMP 98; O2SAT 98
[2018-04-01 18:15] VITALS: PULSE 80
[2018-04-01] MEDS ORDERED: RESP: ALBUTEROL 2.5 MG/IPRATROPIUM 0.5 MG NEB (SCH) NEB ONE (19:00)
[2018-04-01] MEDS ORDERED: hydrALAZINE HCL 25 MG TAB PO PRN (19:15)
[2018-04-01 20:00] VITALS: PULSE 69
[2018-04-01 21:34] VITALS: O2SAT 97
[2018-04-01 22:27] VITALS: BP 168/80; PULSE 78; RESP 18; O2SAT 91
[2018-04-01] MEDS: ACETAMINOPHEN/CODEINE 300 MG/30 MG TAB PO PRN (22:30)
[2018-04-02] VITALS (13 sets, daily range): BP systolic 147–199; BP diastolic 65–94; PULSE 62–73; RESP 16–18; TEMP 97.8–98.6; O2SAT 91–94
[2018-04-02] MEDS ORDERED: VANCOMYCIN 1 GM/200 ML PREMIX IV SCH (07:45)
[2018-04-02] MEDS ORDERED: VANCOMYCIN 1000 MG/NS 250 ML IV ONE ×2 (07:45)
[2018-04-02] MEDS: ACETAMINOPHEN/CODEINE 300 MG/30 MG TAB PO PRN ×3 (08:13→21:03)
[2018-04-02] MEDS: NS 1000 ML IV SCH (08:13)
[2018-04-02] MEDS ORDERED: FUROSEMIDE 40 MG/4 ML VIAL IV PUSH ONE (09:00)
[2018-04-02] MEDS ORDERED: LOSARTAN 50 MG TAB PO SCH (09:00)
[2018-04-02] MEDS: LABETALOL HCL 200 MG TAB PO SCH ×3 (09:00→17:40)
--- NOTE | 2018-04-02 09:06 | PD.CARD.PN ---
Subjective Subjective Remarks The patient complains of SOB and cough this morning. Has edema. BP high this morning. has some mild left anterior shoulder pain. No drainage, swelling or bleeding or device site. Paced this morning. Objective Medications Current Medications Medications (Trade) Dose Ordered Sig/Jovanny Route Start Time Stop Time Status Last Admin ([facility] Information) Hold AM Insulin & ... UNSCH PRN .XX 04/01/18 11:00 04/05/18 10:59 Sodium Chloride 1,000 ml @ 30 mls/hr Q24H IV 04/01/18 11:00 (Betadine 5% Antisepsis Kit) 2 applic BLANKET WEAVER EACH NARE 04/01/18 11:00 04/04/18 10:59 (Bactroban Nasal 2% Oint) 1 applic BLANKET WEAVER NASAL 04/01/18 11:00 04/04/18 10:59 (Chlorhexidine 2% Cloth) 3 pack BLANKET WEAVER TOPICAL 04/01/18 11:00 04/04/18 10:59 Lactated Ringer's 1,000 ml @ 30 mls/hr Q24H PRN IV 04/01/18 11:15 04/04/18 11:14 Sodium Chloride 500 ml @ 30 mls/hr [id number] PRN IV 04/01/18 11:15 04/04/18 11:14 (Lopressor) 25 mg BLANKET WEAVER PRN PO 04/01/18 11:15 04/04/18 11:14 (Betadine 5% Antisepsis Kit) 1 applic BLANKET WEAVER PRN EACH NARE 04/01/18 11:15 04/04/18 11:14 (Chlorhexidine 2% Cloth) 3 pack BLANKET WEAVER PRN TOPICAL 04/01/18 11:15 04/04/18 11:14 (Ambien) 5 mg HS PRN PO 04/01/18 15:00 (Milk Of Magnesia Liq) 30 ml Q6H PRN PO 04/01/18 15:00 (Zofran Inj) 4 mg Q4H PRN IV PUSH 04/01/18 15:00 (Tylenol-Codeine #3) 1 tab Q4H PRN PO 04/01/18 15:00 04/02/18 08:13 ([facility] Information) ALL NURSING DEPARTME... UNSCH PRN .XX 04/01/18 14:00 04/02/18 13:59 (Norvasc) 10 mg DAILY PO 04/01/18 19:00 04/02/18 08:12 (Apresoline) 25 mg Q6H PRN PO 04/01/18 19:15 Vital Signs / I&O Vital Signs Date Time Temp Pulse Resp B/P (MAP) Pulse Ox O2 Delivery O2 Flow Rate FiO2 04/02/18 04:00 63 04/02/18 04:00 98.6 71 16 156/72 (100) 93 04/02/18 02:50 16 04/01/18 22:27 78 18 168/80 (109) 91 04/01/18 21:34 97 Nasal Cannula 2.00 04/01/18 20:00 69 04/01/18 18:15 80 04/01/18 18:10 98.0 69 18 167/82 (110) 98 04/01/18 17:45 98.1 72 14 162/72 (102) 95 Nasal Cannula 2 04/01/18 17:35 70 14 167/75 (105) 95 Nasal Cannula 2 04/01/18 17:30 77 14 206/90 (128) 95 Nasal Cannula 2 04/01/18 17:15 67 14 180/82 (114) 95 Nasal Cannula 2 04/01/18 17:00 63 14 175/78 (110) 94 Nasal Cannula 2 04/01/18 16:45 60 14 168/75 (106) 94 Nasal Cannula 2 04/01/18 16:30 60 14 182/80 (114) 95 Nasal Cannula 2 04/01/18 16:15 63 14 187/83 (117) 95 Nasal Cannula 2 04/01/18 16:00 63 14 204/89 (127) 95 Nasal Cannula 2 04/01/18 15:45 63 14 196/95 (128) 95 Nasal Cannula 2 04/01/18 15:30 61 14 195/88 (123) 97 Nasal Cannula 3 04/01/18 15:15 65 14 205/89 (127) 96 Nasal Cannula 3 04/01/18 15:00 75 14 202/93 (129) 96 Nasal Cannula 3 04/01/18 14:57 97.7 79 14 207/103 (137) 94 Nasal Cannula 3 04/01/18 10:40 36 18 188/92 (124) 95 I/O 04/01/18 04/01/18 04/01/18 04/02/18 04/02/18 04/02/18 07:00 15:00 23:00 07:00 15:00 23:00 Output Total 500 ml Balance -500 ml Output Urine Total 500 ml Physical Exam GENERAL: obese male SKIN: Warm and dry. HEAD: Normocephalic. EYES: No scleral icterus. No injection or drainage. NECK: Supple, trachea midline. . CARDIOVASCULAR: Regular rate and rhythm , device site steri strips C/D/I RESPIRATORY: Breath sounds equal bilaterally. No accessory muscle use. GASTROINTESTINAL: Abdomen soft, non-tender, nondistended, OBESE. MUSCULOSKELETAL: No cyanosis, Pretibial edema BACK: Nontender without obvious deformity. No CVA tenderness. Laboratory Laboratory Tests Test 04/01/18 10:36 White Blood Count 10.1 TH/MM3 Red Blood Count 4.65 MIL/MM3 Hemoglobin 14.4 GM/DL Hematocrit 42.2 % Mean Corpuscular Volume 90.7 FL Mean Corpuscular Hemoglobin 30.9 PG Mean Corpuscular Hemoglobin Concent 34.0 % Red Cell Distribution Width 13.5 % Platelet Count 263 TH/MM3 Mean Platelet Volume 9.1 FL Neutrophils (%) (Auto) 70.3 % Lymphocytes (%) (Auto) 20.0 % Monocytes (%) (Auto) 8.0 % Eosinophils (%) (Auto) 1.1 % Basophils (%) (Auto) 0.6 % Neutrophils # (Auto) 7.1 TH/MM3 Lymphocytes # (Auto) 2.0 TH/MM3 Monocytes # (Auto) 0.8 TH/MM3 Eosinophils # (Auto) 0.1 TH/MM3 Basophils # (Auto) 0.1 TH/MM3 CBC Comment DIFF FINAL Differential Comment Prothrombin Time 10.5 SEC Prothromb Time International Ratio 1.0 RATIO Activated Partial Thromboplast Time 24.0 SEC Blood Urea Nitrogen 24 MG/DL Creatinine 1.35 MG/DL Random Glucose 115 MG/DL Calcium Level 8.8 MG/DL Sodium Level 144 MEQ/L Potassium Level 4.4 MEQ/L Chloride Level 111 MEQ/L Carbon Dioxide Level 22.9 MEQ/L Anion Gap 10 MEQ/L Estimat Glomerular Filtration Rate 51 ML/MIN Imaging Last 72 hours Impressions Chest X-Ray 04/01/18 0000 Signed Impressions: Service Date/Time: Sunday, April 01, 2018 15:10 - CONCLUSION: Pacer left chest in good position. No pneumothorax Dimitris Coronel MD FACR Assessment and Plan Assessment and Plan Complete heart block s/p st zachery PPM 04/01/2018 HTN SOB with evidence of pulmonary edema on CXR PLAN Lasix 40 mg IVP now Antihypertensive treatment, follow up BP. Continue Vanco Anticipate dc today after diuresis and antibiotics. Goal SBP < 150 mmHg and DBP < 90 mmHg. The patient was seen and evaluated by Dr Nolen who completed face to face encounter, physical exam and participated in evaluation and management. Ryann Cotton April 02, 2018 09:06
--- NOTE | 2018-04-02 19:15 | EKG ---
Date Performed: 04/01/2018 Time Performed: 15:32:22 PTAGE: 78 years EK percent AV sequential pacing. When compared to previous tracing, pacer is new. ABNORMAL RHYTHM ECG PREVIOUS TRACING : 04/01/2018 10.57 DOCTOR: Kadeem Parekh Interpretating Date/Time 04/02/2018 19:14:20
--- NOTE | 2018-04-02 19:15 | EKG ---
Date Performed: 04/01/2018 Time Performed: 18:52:54 PTAGE: 78 years EKG: Sinus rhythm with P wave sequential ventricular pacing. Abnormal ECG PREVIOUS TRACING : 04/01/2018 15.32 DOCTOR: Kadeem Parekh Interpretating Date/Time 04/02/2018 19:15:09
[2018-04-03] VITALS (9 sets, daily range): BP systolic 152–164; BP diastolic 67–74; PULSE 63–85; RESP 18–20; TEMP 98.2–98.3; O2SAT 92–95
[2018-04-03] MEDS: LABETALOL HCL 200 MG TAB PO SCH ×2 (08:55→12:06)
[2018-04-03] MEDS ORDERED: LOSARTAN 50 MG TAB PO SCH (09:00)
[2018-04-03] MEDS ORDERED: FUROSEMIDE 40 MG/4 ML VIAL IV PUSH ONE (10:45)
[2018-04-03] MEDS: NS 1000 ML IV SCH (11:00)
[2018-04-03] MEDS ORDERED: ATOR20TA15 PO (13:16)
[2018-04-03] MEDS ORDERED: COZA50TA PO (13:16)
[2018-04-03] MEDS ORDERED: AMLO10 PO (13:16)
[2018-04-03] MEDS ORDERED: LABE200T2 PO (13:16)
== END 2018-04-03 14:11 | disposition home or self-care (01) ==
LOC: HDOC 09:56 → HDIC 09:57 → HCIS 18:00 → HDOC 04-03 14:11
PROVIDERS: ATTEND Internal Medicine Cardiovascular Disease
DX: I44.1 Atrioventricular block, second degree (principal); I05.9 Rheumatic mitral valve disease, unspecified; E78.5 Hyperlipidemia, unspecified; R09.89 Other specified symptoms and signs involving the circulatory and respiratory systems; I10 Essential (primary) hypertension; R42 Dizziness and giddiness; R06.02 Shortness of breath; Z79.82 Long term (current) use of aspirin; Z82.49 Family history of ischemic heart disease and other diseases of the circulatory system
CPT/HCPCS: 00530; 33208; 71045; 80048; 85025; 85610; 85730; 93005; 94664; C1785; C1898; J0360; J1940; J1956; J2270; J3370; J7050; J2405; Q9967